=== PATIENT | male | born 1990 | race Caucasian/White ===

== ENCOUNTER 2019-02-21 16:04 | Emergency (ER) | payer OTHER ==
[~2019-02-21] VITALS: Wt 56.5 kg
[2019-02-21 16:09] VITALS: BP 136/84; PULSE 125; RESP 20
[2019-02-21] MEDS ORDERED: ACETAMINOPHEN 325 MG TAB PO STA (16:21)
[2019-02-21] MEDS ORDERED: DIPHTH/TET/ACEL PERTUSS (ADULT) 0.5 ML VIAL IM* ONE (16:30)
[2019-02-21] MEDS ORDERED: LIDOCAINE 1% (MDV) 20 ML INJ SC ONE (16:30)
[2019-02-21] MEDS ORDERED: IBUP-1542 PO (16:45)
--- NOTE | 2019-02-21 16:58 | ERD ---
ER Documentation Chief Complaint Chief Complaint LACERATION TO RIGHT UPPER THIGH HPI 28-year-old male sustained a laceration on his right upper thigh while jumping a barbed wire fence. Denies restricted range of motion or weakness. Tetanus is not up-to-date. This happened earlier today. ROS All systems reviewed and are negative except as per history of present illness. Medications Home Meds Active Scripts Ibuprofen* (Motrin*) 600 Mg Tab, 600 MG PO Q6, #15 TAB Prov:JAMES FISHER MD 02/21/19 Allergies Allergies: Coded Allergies: No Known Allergy (Unverified , 02/21/19) FmHx Family History: No diabetes, No coronary disease, No other Physical Exam Vitals Vital Signs Date Temp Pulse Resp B/P (MAP) Pulse Ox O2 O2 Flow FiO2 Time Delivery Rate 02/21/19 98.7 125 20 136/84 96 16:09 (101) Physical Exam Const: No acute distress Head: Atraumatic Eyes: Normal Conjunctiva ENT: Normal External Ears, Nose and Mouth. Neck: Full range of motion. No meningismus. Resp: Clear to auscultation bilaterally Cardio: Regular rate and rhythm, no murmurs Abd: Soft, non tender, non distended. Normal bowel sounds Skin: No petechiae or rashes Back: No midline or flank tenderness Ext: No cyanosis, or edema. Approximately 5 cm laceration on the dorsum of the right thigh extending through the dermis. No active bleeding. No deficits or weakness. No foreign body appreciated. Neur: Awake and alert Psych: Normal Mood and Affect Results 24 hrs Current Medications Medications Dose Sig/Aminata Start Time Status Last (Trade) Ordered Route PRN Stop Time Admin Dose Reason Admin Lidocaine 20 ml ONCE ONCE 02/21/19 DC (Xylocaine SC 16:30 1% (Mdv) 20 02/21/19 16:31 ml) 650 mg ONCE STAT 02/21/19 DC 02/21/19 Acetaminophen PO 16:21 16:41 (Tylenol 02/21/19 16:22 Tab) Diphtheria/ 0.5 ml ONCE ONCE 02/21/19 DC 02/21/19 Tetanus/Acell IM* 16:30 16:43 Pertussis 02/21/19 16:31 (Adacel) Procedures/MDM Patient presents with a laceration on the right thigh without signs of foreign body, deficits, ischemia, signs of infection. Patient was given a tetanus booster and Tylenol for pain. Procedure note-right thigh laceration was copiously irrigated with normal saline. 4 cc of lidocaine was used for local nutrition. Eight 4-0 nylon sutures were used to reapproximate the wound. Patient tolerated procedure well and wound was dressed. Patient was discharged home with recommendations for 2-day recheck in 7 to 10 days suture removal. Return sooner for fevers, redness, new or worsening symptoms. Departure Diagnosis: Primary Impression: Laceration Condition: Stable Patient Instructions: Laceration, All Additional Instructions: 7 to 10 days suture removal. Recommend 2-day wound check for infection. Return sooner for fevers, redness, new or worsening symptoms. JAMES FISHER MD February 21, 2019 16:57
== END 2019-02-21 17:13 | disposition home or self-care (01) ==
LOC: FTE 16:04
DX: S71.111A Laceration without foreign body, right thigh, initial encounter (principal); W17.89XA Other fall from one level to another, initial encounter; Y92.9 Unspecified place or not applicable; Z23 Encounter for immunization
CPT/HCPCS: 12002; 90471; 90715; Z7502; Z7610

== ENCOUNTER 2019-02-24 12:29 | Emergency (ER) | payer OTHER ==
[~2019-02-24] VITALS: Ht 165.1 cm; Wt 60.0 kg
[~2019-02-24 12:29] MED LIST: IBUP-1542 PO
[2019-02-24 13:24] VITALS: BP 113/60; PULSE 96; RESP 16; Ht 165.1 cm; Wt 60.0 kg
--- NOTE | 2019-02-24 13:34 | ERD ---
ER Documentation Chief Complaint Chief Complaint RIGHT UPPER THIGH SUTURE CHECK HPI 28-year-old male presents for recheck on his right thigh laceration sutured by me 2 days ago after jumping over a barbed wire fence. He has no complaints of fevers, redness, discharge, bleeding. ROS All systems reviewed and are negative except as per history of present illness. Medications Home Meds Active Scripts Ibuprofen* (Motrin*) 600 Mg Tab, 600 MG PO Q6, #15 TAB Prov:JAMES FISHER MD 02/21/19 Allergies Allergies: Coded Allergies: No Known Allergy (Unverified , 02/21/19) PMhx/Soc Medical and Surgical Hx: pt denies Medical Hx, pt denies Surgical Hx Hx Alcohol Use: No Hx Substance Use: No Hx Tobacco Use: No FmHx Family History: No diabetes, No coronary disease, No other Physical Exam Vitals Vital Signs Date Temp Pulse Resp B/P (MAP) Pulse Ox O2 O2 Flow FiO2 Time Delivery Rate 02/24/19 97.5 96 16 113/60 100 13:24 (77) Physical Exam Const: No acute distress Head: Atraumatic Eyes: Normal Conjunctiva ENT: Normal External Ears, Nose and Mouth. Neck: Full range of motion. No meningismus. Resp: Clear to auscultation bilaterally Cardio: Regular rate and rhythm, no murmurs Abd: Soft, non tender, non distended. Normal bowel sounds Skin: No petechiae or rashes. Healing laceration on right thigh. No bleeding, discharge, restrictions of motion or weakness. Back: No midline or flank tenderness Ext: No cyanosis, or edema Neur: Awake and alert Psych: Normal Mood and Affect Procedures/MDM Patient presents with a healing laceration on the right thigh without signs of infection,, complications. He will be discharged home with recommendations for 7 days suture removal. He should return sooner for fevers, redness, new or worsening symptoms. Departure Diagnosis: Primary Impression: Encounter for wound re-check Condition: Stable Patient Instructions: Wound Check, Lac F/U (No Infection) Additional Instructions: Suture removal in 1 week. Recheck sooner for fevers, redness, new symptoms. JAMES FISHER MD February 24, 2019 13:34
== END 2019-02-24 18:24 | disposition home or self-care (01) ==
LOC: E/R 12:29
DX: Z48.01 Encounter for change or removal of surgical wound dressing (principal)
CPT/HCPCS: 99281

== ENCOUNTER 2019-05-18 21:29 | Emergency (ER) | payer OTHER ==
[~2019-05-18] VITALS: Ht 160 cm; Wt 59.3 kg
[~2019-05-18 21:29] MED LIST changes: +ALBU18HF INHALATION; +BENZ200C68 PO; +DOXY100T20 PO
[2019-05-18 21:31] VITALS: Ht 160 cm; Wt 59.3 kg
[2019-05-18] MEDS ORDERED: IBUPROFEN 600 MG TAB PO ONE (22:30)
[2019-05-18] MEDS ORDERED: ACETAMINOPHEN 325 MG TAB PO ONE (22:30)
[2019-05-19 00:03] VITALS: BP 119/71; PULSE 94; RESP 20
== END 2019-05-19 00:04 | disposition home or self-care (01) ==
LOC: FTE 21:29
DX: J20.9 Acute bronchitis, unspecified (principal)
CPT/HCPCS: 71046; Z7502; Z7610